=== PATIENT | female | born 1970 | race Caucasian/White ===

== ENCOUNTER 2021-01-15 15:37 | Emergency (ER) | payer OTHER, SELFPAY ==
[2021-01-15 15:45] VITALS: BP 141/75; PULSE 63; RESP 19; TEMP 37.1; O2SAT 100; BMI 33.6
[2021-01-15 16:42] LABS: Add Manual Diff / Slide Review NO; Basophils Absolute Auto 100 /uL (0-100); Basophils Percent Auto 0.9 % (0-2); Eosinophils Absolute Auto 100 /uL (0-450); Hematocrit 35.9 % (36-46); Hemoglobin 11.8 g/dL (12.0-16.0); Lymphocytes Absolute Auto 1900 /uL (1100-4500); Lymphocytes Percent Auto 28.9 % (25-40); Mean Corpuscular HGB Conc 32.8 % (30-36); Mean Corpuscular Hemoglobin 25.1 PG (26-34); Mean Corpuscular Volume 76.6 fL (80-100); Monocytes Absolute Auto 400 /uL (0-900); Monocytes Percent Auto 6.3 % (3-14); Neutrophils Absolute Auto 4100 /uL (1500-7000); Neutrophils Percent Auto 62.9 % (50-75); Platelet Count 179 X10^3/uL (150-400); Red Blood Cell Count 4.69 X10^6/uL (4.0-5.2); Red Cell Distribution Width 14.6 % (11.6-14.8); White Blood Cell Count 6.5 X10^3/uL (4.5-11.0)
[2021-01-15 16:56] LABS: Alanine Aminotransferase 20 IU/L (<35); Albumin 4.2 g/dL (3.5-5.0); Albumin Globulin Ratio 1.3 (1.0-2.8); Alkaline Phosphatase 111 U/L (38-126); Aspartate Aminotransferase 31 IU/L (14-36); BUN Creatinine Ratio 14.3 (6-22); Bilirubin Total 0.3 mg/dL (0.2-1.3); Blood Urea Nitrogen 11 mg/dL (7-17); Calcium 9.6 mg/dL (8.4-10.2); Carbon Dioxide 27 mmol/L (22-32); Chloride 104 mmol/L (98-107); Estimated Glomerular Filt Rate > 60.0 mL/min (>60); Globulin 3.2 g/dL (1.7-4.1); Glucose 93 mg/dL (70-100); HEMOLYSIS < 15 (0-50); Lipase 45 U/L (23-300); Sodium 137 mmol/L (137-145); Total Protein 7.4 g/dL (6.3-8.2)
[2021-01-15] MEDS: SODIUM CHLORIDE 0.9% 1,000 ML 1000 ML IV (17:12)
[2021-01-15] MEDS: ONDANSETRON 4 MG/2 ML INJ IV (17:12)
[2021-01-15] MEDS: PANTOPRAZOLE 40 MG VIAL IV (17:16)
--- NOTE | 2021-01-15 17:19 | DI.CT.S_ITS ---
PROCEDURE: CT ABDOMEN PELVIS W CON INDICATIONS: abd pain, hx gastric bypass TECHNIQUE: After the administration of intravenous contrast, 5 mm thick sections acquired from the diaphragm to the symphysis. 5 mm coronal and sagittal reformats were acquired. For radiation dose reduction, the following was used: automated exposure control, adjustment of mA and/or kV according to patient size. COMPARISON: None. FINDINGS: Image quality: Excellent. ABDOMEN: Lung bases: Lung bases are clear. Heart size is normal. Small hiatal hernia. Solid organs: Liver is normal in size and enhancement. Gallbladder is surgically absent. Biliary system is non dilated. Pancreas enhances normally. Spleen is normal in size and enhancement. No adrenal nodules. Kidneys demonstrate normal size and enhancement, without hydronephrosis. Peritoneum and bowel: There are postsurgical changes related to gastric bypass. Bowel loops demonstrate normal wall thickness and caliber. Normal appendix. No free fluid or air. Nodes and vessels: No retroperitoneal or mesenteric adenopathy by size criteria. Aorta and inferior vena cava are normal in size. Miscellaneous: No ventral hernias. PELVIS: Genitourinary: Bladder wall thickness is normal. Uterus is absent. There is a 3.3 cm left ovarian cyst. Right ovary is not identified. No free fluid in pelvis. Miscellaneous: No inguinal hernias or adenopathy. Bones: No suspicious bony lesions. No vertebral body compression fractures. IMPRESSION: 1. No acute intra-abdominal process. 2. Postsurgical changes related to gastric bypass. 3. A 3.3 cm left ovarian cyst. Dictated by: Santiago Storm M.D. on 01/15/2021 at 17:40 Approved by: Santiago Storm M.D. on 01/15/2021 at 17:47
[2021-01-15 17:21] VITALS: PULSE 58; O2SAT 100
[2021-01-15 17:23] VITALS: BP 123/64; PULSE 60; O2SAT 100
[2021-01-15 17:48] LABS: Bacteria Urine None Seen; RBC Urine None Seen (0-5/HPF); WBC Urine None Seen (0-5/HPF)
[2021-01-15 18:15] LABS: Culture Indicated Urine Cult Not Indicated; Squamous Epithelial Cell Urine 0-1 /HPF (0-5/HPF)
[2021-01-15] MEDS: MAG HYDROX/ALUMINUM/SIMETH SUS 20 ML, LIDOCAINE VISCOUS 2% 15 ML PO (18:54)
[2021-01-15] MEDS: KETOROLAC 30 MG/ML VIAL IV (18:57)
--- NOTE | 2021-01-15 19:17 | ED.ABDPAIN ---
HPI - Abdominal Pain <SVITLANA Moon-BC - Last Filed: 01/15/21 20:05> General Chief Complaint: Abdominal Pain Stated Complaint: Abd/Back Pain/Headache Time Seen by Provider: 01/15/21 16:33 Source: patient Mode of arrival: Family Vehicle Limitations: no limitations History of Present Illness HPI narrative: The patient is a 50-year-old female nonsmoker with history of Jose-en-Y gastric bypass, cholecystectomy, hysterectomy presents with a chief complaint of abdominal pain and back pain for the past 10 days. She states that she has ?episodes of pain they usually get better with heat and rest over few days, however this is been going on for about 9-10 days. She denies any fever, states she has regular bowel movements, denies any changes in her diet. She does not take any Protonix or other offal separator. She denies any specific dysuria urgency or frequency. She has tried her prescription baclofen to feel better, but has not taken anything else specifically. She got concerned today and called her primary care provider when she noticed redness in her right eye but denies any injury. She states that her abdominal pain ranges from all over her stomach up to her epigastric area. She feels nauseous but is unable to vomit due to her her surgeries. Related Data Previous Rx's Medication Instructions Recorded hydrocodone-acetaminophen 1 tab PO Q4-6H PRN #7 tab 01/15/21 Allergies Allergy/AdvReac Type Severity Reaction Status Date / Time No Known Drug Allergies Allergy Verified 01/15/21 15:44 Review of Systems <SVITLANA Moon- - Last Filed: 01/15/21 20:05> Review of Systems Narrative: GENERAL: Denies chills, fatigue, malaise, fever, sweats. HEENT: Denies sinus pain, ear pain, sore throat, difficulty swallowing, dizziness. RESPIRATORY: Denies dyspnea, cough, wheezing, hemoptysis, sputum. CARDIOVASCULAR: Denies chest pain, palpitations, orthopnea, edema, GASTROINTESTINAL: See HPI : Denies dysuria, frequency, incontinence, hematuria, urinary retention. MUSCULOSKELETAL: See HPI SKIN: Denies rash, skin lesions, or other NEUROLOGIC: Denies weakness, headache, numbness, change in speech, confusion, seizures, incoordination. PSYCHIATRIC: No concerning psychosocial issues. 12 point review of systems is negative except for those stated above Patient History <Magdalena ZendejasSVITLANA-BC - Last Filed: 01/15/21 20:05> Social History Smoking Status: Never smoker Smoking Status: Never smoker alcohol intake frequency: 0-2 drinks per day Substance Use Type: does not use Exam <Magdalena ZendejasSVITLANA-BC - Last Filed: 01/15/21 20:05> Narrative Exam Narrative: GENERAL: This is a well-nourished, well-developed patient, in no acute distress HEAD: Atraumatic. Normocephalic. No temporal or scalp tenderness. EYES: Pupils equal round and reactive. Extraocular motions intact. No scleral icterus. No injection or drainage. ENT: Nose without bleeding, purulent drainage or septal hematoma. Throat without erythema, tonsillar hypertrophy or exudate. Uvula midline. Airway patent. Subconjunctival hemorrhage noted lateral aspect right eye NECK: Trachea midline. No JVD or lymphadenopathy. Supple, nontender, no meningeal signs. CARDIOVASCULAR: Regular rate and rhythm without murmurs, gallops, or rubs. RESPIRATORY: Clear to auscultation. Breath sounds equal bilaterally. No wheezes, rales, or rhonchi. GASTROINTESTINAL: Abdomen soft, diffusely tender to palpation, active bowel sounds all 4 quadrants, nondistended. No hepato-splenomegaly, or palpable masses. No guarding. EXTREMITIES: No clubbing, cyanosis, or edema. No joint tenderness, effusion, or edema noted. BACK: Lumbar paraspinal muscles tender to palpation. without deformity or crepitance. No flank tenderness. NEURO: AOx3. SKIN: No rash or erythema on visible skin Initial Vital Signs Initial Vital Signs: Vital Signs Temperature 98.7 F 01/15/21 15:45 Pulse Rate 63 01/15/21 15:45 Respiratory Rate 19 01/15/21 15:45 Blood Pressure 141/75 H 01/15/21 15:45 Pulse Oximetry 100 01/15/21 15:45 <Antoinette Wright DO - Last Filed: 01/19/21 07:44> Initial Vital Signs Initial Vital Signs: Vital Signs Temperature 98.7 F 01/15/21 15:45 Pulse Rate 63 01/15/21 15:45 Respiratory Rate 19 01/15/21 15:45 Blood Pressure 141/75 H 01/15/21 15:45 Pulse Oximetry 100 01/15/21 15:45 Course <Magdalena Hemer, HORTICULTURAL NURSERY ASSISTANT-BC - Last Filed: 01/15/21 20:05> Orders Ordered: Discontinued Medications Hydrocodone Bitart/Acetaminophen (Hydrocodone/Acet 5/325 Tablet) 1 tab PO NOW ONE Stop: 01/15/21 19:33 Last Admin: 01/15/21 19:40 Dose: 1 tab Documented by: AMY Al Hydrox/Mg Hydrox/Simethicone 20 ml/ Lidocaine HCl 15 ml 0 ml PO NOW ONE Stop: 01/15/21 18:33 Last Admin: 01/15/21 18:54 Dose: 35 ml Documented by: ROBYN Cyclobenzaprine HCl (Cyclobenzaprine 10 Mg Tablet) 10 mg PO NOW ONE Stop: 01/15/21 19:33 Last Admin: 01/15/21 19:40 Dose: 10 mg Documented by: AMY Sodium Chloride (Normal Saline 0.9%) 1,000 mls @ 1,000 mls/hr IV BOLUS ONE Stop: 01/15/21 17:49 Last Infusion: 01/15/21 19:31 Dose: 0 mls/hr Documented by: Admin: 01/15/21 17:12 Dose: 1,000 mls/hr Documented by: ROBYN Ketorolac Tromethamine (Ketorolac 30 Mg/Ml Vial) 30 mg IV NOW ONE Stop: 01/15/21 18:33 Last Admin: 01/15/21 18:57 Dose: 30 mg Documented by: ROBYN Ondansetron HCl (Ondansetron 4 Mg/2 Ml Inj) 4 mg IV NOW ONE Stop: 01/15/21 16:50 Last Admin: 01/15/21 17:12 Dose: 4 mg Documented by: ROBYN Pantoprazole Sodium (Pantoprazole 40 Mg Vial) 40 mg IV NOW ONE Stop: 01/15/21 16:50 Last Admin: 01/15/21 17:16 Dose: 40 mg Documented by: ROBYN Vital Signs Vital signs: Vital Signs - 8 hr 01/15/21 15:45 01/15/21 17:21 01/15/21 17:23 Temperature 98.7 F Pulse Rate 63 58 L 60 Respiratory Rate 19 Blood Pressure 141/75 H 123/64 Pulse Oximetry 100 100 100 01/15/21 19:25 Temperature Pulse Rate 56 L Respiratory Rate Blood Pressure 118/76 Pulse Oximetry 100 <Antoinette Wright DO - Last Filed: 01/19/21 07:44> Orders Ordered: Discontinued Medications Hydrocodone Bitart/Acetaminophen (Hydrocodone/Acet 5/325 Tablet) 1 tab PO NOW ONE Stop: 01/15/21 19:33 Last Admin: 01/15/21 19:40 Dose: 1 tab Documented by: AMY Al Hydrox/Mg Hydrox/Simethicone 20 ml/ Lidocaine HCl 15 ml 0 ml PO NOW ONE Stop: 01/15/21 18:33 Last Admin: 01/15/21 18:54 Dose: 35 ml Documented by: ROBYN Cyclobenzaprine HCl (Cyclobenzaprine 10 Mg Tablet) 10 mg PO NOW ONE Stop: 01/15/21 19:33 Last Admin: 01/15/21 19:40 Dose: 10 mg Documented by: AMY Sodium Chloride (Normal Saline 0.9%) 1,000 mls @ 1,000 mls/hr IV BOLUS ONE Stop: 01/15/21 17:49 Last Infusion: 01/15/21 19:31 Dose: 0 mls/hr Documented by: Admin: 01/15/21 17:12 Dose: 1,000 mls/hr Documented by: ROBYN Ketorolac Tromethamine (Ketorolac 30 Mg/Ml Vial) 30 mg IV NOW ONE Stop: 01/15/21 18:33 Last Admin: 01/15/21 18:57 Dose: 30 mg Documented by: ROBYN Ondansetron HCl (Ondansetron 4 Mg/2 Ml Inj) 4 mg IV NOW ONE Stop: 01/15/21 16:50 Last Admin: 01/15/21 17:12 Dose: 4 mg Documented by: ROBYN Pantoprazole Sodium (Pantoprazole 40 Mg Vial) 40 mg IV NOW ONE Stop: 01/15/21 16:50 Last Admin: 01/15/21 17:16 Dose: 40 mg Documented by: ROBYN Vital Signs Vital signs: Vital Signs - 8 hr 01/15/21 15:45 01/15/21 17:21 01/15/21 17:23 Temperature 98.7 F Pulse Rate 63 58 L 60 Respiratory Rate 19 Blood Pressure 141/75 H 123/64 Pulse Oximetry 100 100 100 01/15/21 19:25 Temperature Pulse Rate 56 L Respiratory Rate Blood Pressure 118/76 Pulse Oximetry 100 MDM - Abdominal Pain <Magdalena ZendejasBETIP-BC - Last Filed: 01/15/21 20:05> Lab Data Attestation: I reviewed the patient's lab results. Result diagrams: 01/15/21 16:32 01/15/21 16:32 Labs: Lab Results 01/15/21 01/15/21 01/15/21 Range/Units 16:32 16:32 17:20 WBC 6.5 (4.5-11.0) X10^3/uL RBC 4.69 (4.0-5.2) X10^6/uL Hgb 11.8 L (12.0-16.0) g/dL Hct 35.9 L (36-46) % MCV 76.6 L (80-100) fL MCH 25.1 L (26-34) PG MCHC 32.8 (30-36) % RDW 14.6 (11.6-14.8) % Plt Count 179 (150-400) X10^3/uL Neut % (Auto) 62.9 (50-75) % Lymph % (Auto) 28.9 (25-40) % Wheeler % (Auto) 6.3 (3-14) % Eos % (Auto) 1.0 L (2-4) % Baso % (Auto) 0.9 (0-2) % Neut # (Auto) 4100 (7616-1324) /uL Lymph # (Auto) 1900 (7990-5850) /uL Wheeler # (Auto) 400 (0-900) /uL Eos # (Auto) 100 (0-450) /uL Baso # (Auto) 100 (0-100) /uL Sodium 137 (137-145) mmol/L Potassium 4.0 (3.4-5.1) mmol/L Chloride 104 (98-107) mmol/L Carbon Dioxide 27 (22-32) mmol/L BUN 11 (7-17) mg/dL Creatinine 0.77 (0.52-1.04) mg/dL Estimated GFR > 60.0 (>60) mL/min BUN/Creatinine Ratio 14.3 (6-22) Glucose 93 (70-100) mg/dL Calcium 9.6 (8.4-10.2) mg/dL Total Bilirubin 0.3 (0.2-1.3) mg/dL AST 31 (14-36) IU/L ALT 20 (<35) IU/L Alkaline Phosphatase 111 (38-126) U/L Total Protein 7.4 (6.3-8.2) g/dL Albumin 4.2 (3.5-5.0) g/dL Globulin 3.2 (1.7-4.1) g/dL Albumin/Globulin Ratio 1.3 (1.0-2.8) Lipase 45 (23-300) U/L Urine RBC None seen (0-5/HPF) Urine WBC None seen (0-5/HPF) Ur Squamous Epith Cells 0-1 /hpf (0-5/HPF) Urine Bacteria None seen (None) Ur Culture Indicated? Cult not indicated Point of care testing: Point of Care Testing Test Results Negative Urine Dip Bedside Urine Glucose Negative Bedside Urine Bilirubin - Negative Bedside Urine Ketone - Negative Urine Specific [place] 1.020 Bedside Urine Occult Blood +/- Bedside Urine pH 6.0 Bedside Urine Urobilinogen - Negative Bedside Urine Nitrite - Negative Bedside Urine Leukocytes - Negative Esterase MDM Narrative Medical decision making narrative: The patient is a 50-year-old female with a complicated abdominal surgical history presents with a chief complaint of 9 days of abdominal pain. Given her multiple belly surgeries including gastric bypass, CT abdomen pelvis was obtained. This had no acute findings. Overall her lab work is grossly reassuring, no leukocytosis. Given her subconjunctival hemorrhage, visual acuity was taken and was the same for both eyes. The patient was given Protonix and Zofran initially, declines any more so relaxers for her back pain as ?they do not work and flexeril is a joke. She declines lidocaine patches pain for her back. We did elect to do IV ketorolac, as well as a GI cocktail to see if that would help, but did not greatly improved. We elected to use cyclobenzaprine and Hines for her back pain, which provided relief for the patient. Will not provide cyclobenzaprine prescription as she is back foot at home, did elect to do small prescription of Hines. Discussed at length strict follow-up with her primary care provider. We do not have a explicit cause for her pain today, though CT helps rule out obstruction, appendicitis, other acute etiologies. She finds on follow-up with primary care provider tomorrow. Discussed at length coming back to the ER for acute concerns such as no pain with fever, inability keep down fluids etcetera. Patient has been of no questions or concerns upon discharge and state understanding return precautions as well as follow-up care. <Antoinette Wright, DO - Last Filed: 01/19/21 07:44> Lab Data Labs: Lab Results 01/15/21 01/15/21 01/15/21 Range/Units 16:32 16:32 17:20 WBC 6.5 (4.5-11.0) X10^3/uL RBC 4.69 (4.0-5.2) X10^6/uL Hgb 11.8 L (12.0-16.0) g/dL Hct 35.9 L (36-46) % MCV 76.6 L (80-100) fL MCH 25.1 L (26-34) PG MCHC 32.8 (30-36) % RDW 14.6 (11.6-14.8) % Plt Count 179 (150-400) X10^3/uL Neut % (Auto) 62.9 (50-75) % Lymph % (Auto) 28.9 (25-40) % Wheeler % (Auto) 6.3 (3-14) % Eos % (Auto) 1.0 L (2-4) % Baso % (Auto) 0.9 (0-2) % Neut # (Auto) 4100 (2656-6946) /uL Lymph # (Auto) 1900 (7603-3669) /uL Wheeler # (Auto) 400 (0-900) /uL Eos # (Auto) 100 (0-450) /uL Baso # (Auto) 100 (0-100) /uL Sodium 137 (137-145) mmol/L Potassium 4.0 (3.4-5.1) mmol/L Chloride 104 (98-107) mmol/L Carbon Dioxide 27 (22-32) mmol/L BUN 11 (7-17) mg/dL Creatinine 0.77 (0.52-1.04) mg/dL Estimated GFR > 60.0 (>60) mL/min BUN/Creatinine Ratio 14.3 (6-22) Glucose 93 (70-100) mg/dL Calcium 9.6 (8.4-10.2) mg/dL Total Bilirubin 0.3 (0.2-1.3) mg/dL AST 31 (14-36) IU/L ALT 20 (<35) IU/L Alkaline Phosphatase 111 (38-126) U/L Total Protein 7.4 (6.3-8.2) g/dL Albumin 4.2 (3.5-5.0) g/dL Globulin 3.2 (1.7-4.1) g/dL Albumin/Globulin Ratio 1.3 (1.0-2.8) Lipase 45 (23-300) U/L Urine RBC None seen (0-5/HPF) Urine WBC None seen (0-5/HPF) Ur Squamous Epith Cells 0-1 /hpf (0-5/HPF) Urine Bacteria None seen (None) Ur Culture Indicated? Cult not indicated Point of care testing: Point of Care Testing Test Results Negative Urine Dip Bedside Urine Glucose Negative Bedside Urine Bilirubin - Negative Bedside Urine Ketone - Negative Urine Specific [place] 1.020 Bedside Urine Occult Blood +/- Bedside Urine pH 6.0 Bedside Urine Urobilinogen - Negative Bedside Urine Nitrite - Negative Bedside Urine Leukocytes - Negative Esterase Discharge Plan Departure Patient Disposition: Home Clinical Impression: Abdominal pain Qualifiers: Abdominal location: generalized Qualified Code(s): R10.84 - Generalized abdominal pain Back pain Qualifiers: Back pain location: low back pain Chronicity: acute Back pain laterality: bilateral Sciatica presence: without sciatica Qualified Code(s): M54.5 - Low back pain Subconjunctival hematoma Qualifiers: Laterality: right Qualified Code(s): H11.31 - Conjunctival hemorrhage, right eye Instructions: DI for Low Back Pain, DI for Abdominal Pain-Adult, DI for Subconjunctival Hemorrhage Activity Restrictions/Additional Instructions: Thank you for trusting us with your care today As discussed, your imaging resulted with no acute findings, which is great news. Your lab work was also very reassuring and your urine had no signs of infection. Please follow-up with primary care provider in the next few days. Please rest and push fluids. You may benefit from seeing a GI specialist. I did send a pain medicine prescription to [facility] in [place]. I have given you a prescription of a narcotic for pain. Be aware that this can be constipating and sedating. I encouraged taking with a stool softener, pushing fluids and fiber. Do not take and drive, operate heavy machinery, etc. Do not combine it with any other sedating substances such as alcohol. The combination of narcotics and alcohol and/or other sedatives can be lethal. As discussed, Please come back to the emergency department for any acute concerns. Prescriptions: New hydrocodone-acetaminophen 5-325 mg tablet 1 tab PO Q4-6H PRN (Reason: pain) Qty: 7 RF: 0 Referrals: Shraddha Dyer PA-C [Primary Care Provider] - <Antoinette Wright DO - Last Filed: 01/19/21 07:44> [facility] ED Attending Sigifredo Attestation: I was immediately available in the department for consultation. Documentation has been reviewed. I agree with assessment and plan.
[2021-01-15 19:25] VITALS: BP 118/76; PULSE 56; O2SAT 100
[2021-01-15] MEDS: CYCLOBENZAPRINE 10 MG TABLET PO (19:40)
[2021-01-15] MEDS: HYDROCODONE/ACET 5/325 TABLET 1 TAB PO (19:40)
== END 2021-01-15 20:11 | disposition home or self-care (01) ==
PROVIDERS: Emergency Medicine; Emergency Provider Nurse Practitioner Family; Family Provider Family Medicine; PCP Physician Assistant
DX: R10.84 Generalized abdominal pain (principal); M54.5 Low back pain; H11.31 Conjunctival hemorrhage, right eye
CPT/HCPCS: 36415; 74177; 80053; 81003; 81015; 81025; 83690; 85025; 93005; 96361; 96374; 96375; 99284; C9113; J1885; J2405

== ENCOUNTER → 2021-01-18 18:50 | Outpatient (CLI) | payer OTHER, SELFPAY ==
--- NOTE | 2021-01-18 | DI.MRI.S_ITS ---
PROCEDURE: MR LUMBAR SPINE WO CON INDICATIONS: Low back pain TECHNIQUE: Noncontrast sagittal T1 spin echo and T2 fast echo, sagittal STIR, axial T1 and T2 fast spin echo through the lumbar spine. In cases with scoliosis, additional coronal T2 fast spin echo may be performed. COMPARISON: [facility], RG, MRI L-SPINE W/WO CONTRAST, 01/23/2019, 9:18. [facility], CT, CT ABDOMEN PELVIS W CON, 01/15/2021, 17:27. [facility], CR, SPINE LUMB 2 OR 3VW, 01/19/2013, 14:19. FINDINGS: Image quality: Excellent. Alignment and Curvature: 5 lumbar type vertebral bodies are present by CT. There is mild, grade 1 retrolisthesis of L5 on S1. Bone Marrow: Marrow is of normal overall signal. No acute vertebral body compression fractures. There is minimal reactive signal within the endplates adjacent to the L3-L4 and L5-S1 intervertebral discs. Spinal Cord: Conus medullaris terminates at the mid L1 level. Visualized cord demonstrates normal signal and size. Paraspinous Soft Tissues: No paravertebral masses. T12-L1: Mild disc height loss and desiccation. No significant canal, or foraminal stenosis. No significant change. L1-L2: Normal appearance. L2-L3: Normal appearance. L3-L4: Minimal disc desiccation and diffuse disc bulge. Mild epidural lipomatosis. Mild canal stenosis. No foraminal stenosis. No significant change. L4-L5: Mild facet and ligamentum flavum hypertrophy. Mild diffuse disc bulge. Minimal canal stenosis. No foraminal stenosis. No significant change. L5-S1: Mild disc height loss and desiccation. Mild diffuse disc bulge with superimposed small right paracentral protrusion. Mild bilateral facet hypertrophy. Mild canal stenosis. No foraminal stenosis. No significant change. IMPRESSION: 1. Multilevel degenerative disc and facet disease, as well as ligamentum flavum hypertrophy and epidural lipomatosis. 2. Mild multilevel canal and foraminal stenoses. No neural impingement. Dictated by: Rachelle Brooke M.D. on 01/19/2021 at 9:15 Approved by: Rachelle Brooke M.D. on 01/19/2021 at 9:18
== END ==
PROVIDERS: Family Provider Family Medicine; PCP Physician Assistant; Referring Provider Physician Assistant; Visit Provider Physician Assistant
DX: M54.5 Low back pain (principal); M51.16 Intervertebral disc disorders with radiculopathy, lumbar region; M51.17 Intervertebral disc disorders with radiculopathy, lumbosacral region; M47.26 Other spondylosis with radiculopathy, lumbar region; M47.27 Other spondylosis with radiculopathy, lumbosacral region; M48.061 Spinal stenosis, lumbar region without neurogenic claudication; M48.07 Spinal stenosis, lumbosacral region
CPT/HCPCS: 72148

== ENCOUNTER → 2021-09-17 14:39 | Outpatient (CLI) | payer OTHER, SELFPAY ==
--- NOTE | 2021-09-17 | DI.RAD.S_ITS ---
PROCEDURE: XR THORACIC SPINE 2V INDICATIONS: pain TECHNIQUE: 3 views of the thoracic spine were acquired. COMPARISON: None. FINDINGS: Bones: No fractures or dislocations. No suspicious bony lesions. 12 pairs of ribs are noted, and appear intact where visualized. Moderate midthoracic spine degenerative disc disease. Mild upper and lower thoracic spine degenerative disc disease. Soft tissues: No paravertebral stripe thickening. Multiple surgical clips at the gastroesophageal junction. IMPRESSION: 1. Multilevel degenerative disc disease. 2. No fracture. No acute osseous lesion. If symptoms and/or clinical suspicion for pathology persists, evaluation with MRI should be considered for further assessment. Dictated by: Juliana Mireles MD, PhD on 09/17/2021 at 16:24 Approved by: Juliana Mireles MD, PhD on 09/17/2021 at 16:25
--- NOTE | 2021-09-17 | DI.RAD.S_ITS ---
PROCEDURE: XR LUMBAR SPINE 2-3V INDICATIONS: back pain TECHNIQUE: 3 views of the lumbar spine were acquired. COMPARISON: [facility], RG, MRI L-SPINE W/WO CONTRAST, 01/23/2019, 9:18. [facility], MR, MR LUMBAR SPINE WO CON, 01/18/2021, 19:08. FINDINGS: Image quality limited by patient body habitus. Bones: Possible of height noted in the L1 vertebral body compatible with compression fracture of indeterminate age. Possible L1 compression fracture causes approximately 5% loss of normal vertebral body height. Mild degenerative disc changes noted in the lower lumbar spine.. Soft tissues: Overlying bowel gas pattern is normal. No suspicious soft tissue calcifications. IMPRESSION: Possible L1 compression fracture of indeterminate age. Recommend CT or MRI of the lumbar spine for additional evaluation if clinically indicated. Dictated by: Juliana Mireles MD, PhD on 09/17/2021 at 16:25 Approved by: Juliana Mireles MD, PhD on 09/17/2021 at 16:27
== END ==
PROVIDERS: Family Provider Family Medicine; PCP Physician Assistant; Referring Provider Physician Assistant; Visit Provider Physician Assistant
DX: M51.34 Other intervertebral disc degeneration, thoracic region (principal); M47.816 Spondylosis without myelopathy or radiculopathy, lumbar region; M54.50 Low back pain, unspecified
CPT/HCPCS: 72070; 72100